=== PATIENT | male | born 1965 | race Caucasian/White ===

== ENCOUNTER 2022-03-08 10:46 | Emergency (ER) | payer BC, SELFPAY ==
[2022-03-08 10:51] VITALS: BP 145/85; PULSE 62; RESP 17; TEMP 36.6; O2SAT 99
--- NOTE | 2022-03-08 11:30 | DI.CT_ITS ---
Exam(s) CT HEAD WO EXAM: CT HEAD WO CLINICAL HISTORY: headache. TECHNIQUE: Imaging Protocol: Axial computed tomography images with coronal and sagittal reformatted images were created and reviewed COMPARISON: No exams were available for comparison FINDINGS: Ventricles and Extra axial spaces: Normal in size and morphology for the patient's age. Hemorrhage: None. Cerebral parenchyma: Normal. Midline shift: None. Brainstem/Cerebellum: Normal. Calvarium: Normal. Visualized Paranasal sinuses/Mastoids: There is mucosal thickening of a few ethmoid air cells and mil d mucosal thickening in the left sphenoid sinus. The remaining visualized paranasal sinuses and mast oid air cells are clear. Soft Tissues: Unremarkable. IMPRESSION: 1. No acute intracranial process. 2. Mild paranasal sinusitis. 3. Results of this exam have been verbally communicated with provider. RADIATION DOSE DELIVERED: 808.01mGy.cm Total DLP DATA REPOSITORY: All CT scans at this facility are submitted to the National Radiology Data Registry (NRDR) Dose Index Registry (DIR) with the [employer] ([employer]). RADIATION OPTIMIZATION: All CT scans at this facility use at least one of these dose optimization te chniques: automated exposure control; mA and/or kV adjustment per patient size (includes targeted exa ms where dose is matched to clinical indication); or iterative reconstruction.
[2022-03-08 11:56] LABS: Abs Immature Grans 0.04 10^3/uL (0.0-0.06); Absolute Basophil Count 0.02 10^3/uL (0.0-0.2); Absolute Eosinophil Count 0.02 10^3/uL (0.0-0.7); Absolute Monocyte Count 0.43 10^3/uL (0.1-0.8); Basophils % 0.2; Eosinophils % 0.2; HCT 43.7 % (40.0-50.0); HGB 15.6 g/dL (13.5-17.5); Immature Grans % 0.4; Lymphocytes % 9.9; MCH 31.5 pg (27.0-33.0); MCHC 35.7 % (32.0-36.0); MCV 88 fL (80-95); MPV 9.5 fL (8.0-11.0); Monocytes % 4.7; Neutrophils % 84.6; Platelet Count 208 10^3/uL (130-400); RBC 4.95 10^6/uL (4.36-5.78); RDW 13.1 % (11.8-14.1); RDW-SD 42.4 fL; WBC 9.11 10^3/uL (4.4-10.8)
[2022-03-08] MEDS: Normal Saline 1,000 ML 1000 ML IV (12:05)
[2022-03-08] MEDS: diphenhydrAMINE 50 MG/ML VIAL 25 MG IVP (12:08)
[2022-03-08] MEDS: Prochlorperazine 10 MG/2 ML VIAL IVP (12:08)
[2022-03-08 12:09] LABS: ALT 25 U/L (16-63); AST 16 U/L (15-37); Alkaline Phosphatase 52 U/L (46-116); Anion Gap 8.1 mmol/L (3-11); BUN 18 mg/dL (7-18); Bilirubin, Total 0.5 mg/dL (0.2-1.0); CO2 26.9 mmol/L (21.0-32.0); CREATININE 1.3 mg/dL (0.70-1.30); Calcium 9.6 mg/dL (8.5-10.1); Chloride 103 mmol/L (98-107); Estimated GFR 57.53 (mL/min/1.73m2); Glucose 106 mg/dL (74-106); Potassium 4.2 mmol/L (3.5-5.1); Sodium 138 mmol/L (136-145); Total Protein 7.5 g/dL (6.4-8.2)
[2022-03-08] MEDS: Ketorolac 30 MG/ML VIAL IVP (12:11)
--- NOTE | 2022-03-08 13:57 | ED.GENADUL_ITS ---
Discharge Plan Disposition Patient Disposition: HOME Condition: Improving Discharge Details Clinical Impression: Headache Primary Care Provider: Violeta,Local ED Provider: Tommy Messer Home Meds and New Rx's Prescriptions: No Action No Known Home Meds Discharge Instructions Instructions: General Headache (ED) Additional Instructions: If you have any new or significant worsening of symptoms it is recommended that you follow back up with the emergency department for reassessment and further imaging or treatment as needed. At this time your headache has improving and no focal neurological findings so no need for further work-up but again if any change in condition occurs it is recommended that you have further imaging and evaluation. Please stay well-hydrated and get plenty of rest and you may continue to take [id number] Excedrin, acetaminophen, or Motrin. Referrals: Primary Care Provider [Outside] - 1 week (For reassessment) Discharge Data Discharge Date/Time-TO BE ENTERED AT DEPARTURE: 03/08/22 14:35 Medical Decision Making Patient presenting to the emergency department chief complaint of headache. Patient does state that he has had significant amount of stress at work and does have history of migraines but today's is significantly worse than any headache he has had previously. Patient denies any focal neurological symptoms does state some nausea. Patient also does report that he had COVID within the past month and only had mild symptoms of for recovery. Physical exam reveals no focal gross neurological deficit. 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 We will plan on checking labs, giving migraine cocktail to include Toradol, Compazine, Benadryl, and IV fluids. Given worse headache will also perform CT imaging Review of labs is unremarkable CBC except for slight elevation of neutrophils and low lymphocytes, CMP unremarkable. CT was reviewed with radiologist and shows chronic sinus disease but no acute intracranial findings. Patient reassessed and did state significant improvement beyond meds making him slightly drowsy. Given that patient is improving, reassessment shows no acute neurological findings, I do feel that patient is safe for discharge also given that patient is going to be staying with family member who is in the medical field and who also can provide close monitoring. After discussion of diagnosis and plan of care patient and has no further needs, questions, or concerns and states clear understanding to return to the emergency department for any worsening symptoms. This documentation was generated using [employer] system, please disregard any oddities of phrase or misspellings. Imaging Data Radiologic Study: Imaging: CT Scan Radiologist's impression: FINDINGS: Ventricles and Extra axial spaces: Normal in size and morphology for the patient's age. Hemorrhage: None. Cerebral parenchyma: Normal. Midline shift: None. Brainstem/Cerebellum: Normal. Calvarium: Normal. Visualized Paranasal sinuses/Mastoids: There is mucosal thickening of a few ethmoid air cells and mild mucosal thickening in the left sphenoid sinus. The remaining visualized paranasal sinuses and mastoid air cells are clear. Soft Tissues: Unremarkable. IMPRESSION: 1. No acute intracranial process. 2. Mild paranasal sinusitis. 3. Results of this exam have been verbally communicated with provider. Lab Data Lab results reviewed: Yes I reviewed the patient's lab results. HPI General Mode of arrival: ambulatory . Date/Time Provider Initiated Documentation: 03/08/22 11:04 . Limitations to Documentation: no limitations . Information obtained by: patient and RN notes reviewed . History of Present Illness 56 year old M presents to the emergency department with the chief complaint of headache, described as severe, with intensity rated at 9. Quality is described as aching and sharp, and is localized to the head. Patient reports no radiation. Patient started experiencing this hour(s) (5) and it has been constant. No relieving factors improve symptom(s), No exacerbating factors reported . Patient notes denies chest pain, cough, rash, shortness of breath, syncope and weakness. Patient did receive the following treatments prior to arrival, none Related Data Home Medications Medication Instructions Recorded Confirmed Unknown [No Known Home Meds] 03/08/22 03/08/22 General Stated Complaint: Headache WOOD: 4 Review of Systems Constitutional Constitutional: Denies body ache(s), Denies chills, Denies fever(s) and Reports headache(s) Eyes Eyes: Denies change in vision ENT Ears, Nose, Mouth, and Throat: Denies dizziness and Reports headache(s) Cardiovascular Cardiovascular: Denies chest pain and Denies syncope Gastrointestinal Gastrointestinal: Reports nausea and Denies vomiting Neurologic Neurologic: Reports as per HPI, Denies dizziness, Denies syncope, Reports headache(s) and Denies sensory deficit PFSH All Active Problems (Updated 03/08/22 @ 14:29 by Tommy Messer NP) Headache (Acute) Social History Smoking/Tobacco Use Status: Never Smoking risk assessment performed?: Yes Alcohol Intake: current Alcohol Intake frequency: a few times a month Alcohol type: beer Drug use: Never Substance use type: does not use Do you feel safe at home: Yes Do you feel safe in your relationship?: Yes Exam Const General: cooperative and well groomed Orientation: alert, awake and oriented x3 HENMT Head: normal to inspection Ears: hearing grossly normal bilaterally and TM's normal bilaterally Mouth: oral mucosae normal and moist mucous membranes Throat: posterior oropharynx normal Eyes Visual Church: normal visual church by confrontation Alignment and Position: alignment normal Periorbital: periorbital findings normal Eyelids: eyelids normal Sclera: sclerae normal Pupils: other (Pupils are PERRL but left pupil is larger than the right @ baseline) EOM: EOM intact bilaterally Neck Neck: normal visual inspection, full ROM and no meningeal signs Resp Effort & Inspection: normal respiratory effort and able to speak in complete sentences Auscultation: clear to auscultation bilaterally Cardio Rate: regular rate Rhythm: regular rhythm Heart Sounds: S1 normal and S2 normal Neuro General: patient alert, patient awake, patient oriented x3, gait normal, tone normal, moves all extremities, CN's II-XI intact bilaterally and not confused Cognition: normal cognition Speech: speech normal Motor: muscle tone normal throughout, strength 5/5 throughout, no pronator drif t, no movement abnormalities noted and no fasciculations Sensory Exam: no sensory deficits noted Coordination: Does not sway with eyes open Course Vital Signs Vital signs: Vital Signs Temperature 36.6 C 03/08/22 10:51 Pulse 62 03/08/22 10:51 Respiratory Rate 17 03/08/22 10:51 Blood Pressure 145/85 H 03/08/22 10:51 Pulse Oximetry 99 03/08/22 10:51 Temperature 36.6 C 03/08/22 10:51 Temperature Source Temporal Artery Scan 03/08/22 10:51 Pulse 62 03/08/22 10:51 Respiratory Rate 17 03/08/22 10:51 Blood Pressure 145/85 H 03/08/22 10:51 Blood Pressure Position Sitting 03/08/22 10:51 Pulse Oximetry 99 03/08/22 10:51 Oxygen Delivery Method Room Air 03/08/22 10:51 Oxygen Flow Rate 0 03/08/22 10:51 Pain Level 10 03/08/22 10:51 Lab/Test Results Lab/Test Results: Laboratory Tests Range/Units 03/08/22 03/08/22 11:47 11:47 WBC (4.4-10.8) 10^3/uL 9.11 RBC (4.36-5.78) 10^6/uL 4.95 Hgb (13.5-17.5) g/dL 15.6 Hct (40.0-50.0) % 43.7 MCV (80-95) fL 88 MCH (27.0-33.0) pg 31.5 MCHC (32.0-36.0) % 35.7 RDW (11.8-14.1) % 13.1 Plt Count (130-400) 10^3/uL 208 MPV (8.0-11.0) fL 9.5 Immature Gran % 0.4 Neutrophils % 84.6 Lymphocytes % 9.9 Monocytes % 4.7 Eosinophils % 0.2 Basophils % 0.2 Nucleated RBC % (0.0-0.3) % 0.0 Absolute Neutrophils (1.2-6.7) 10^3/uL 7.70 H Absolute Lymphocytes (1.2-3.4) 10^3/uL 0.90 L Absolute Monocytes (0.1-0.8) 10^3/uL 0.43 Absolute Eosinophils (0.0-0.7) 10^3/uL 0.02 Absolute Basophils (0.0-0.2) 10^3/uL 0.02 Sodium (136-145) mmol/L 138 Potassium (3.5-5.1) mmol/L 4.2 Chloride (98-107) mmol/L 103 Carbon Dioxide (21.0-32.0) mmol/L 26.9 Anion Gap (3-11) mmol/L 8.1 BUN (7-18) mg/dL 18 Creatinine (0.70-1.30) mg/dL 1.3 Estimated GFR/1.73 m2 (mL/min/1.73m2) 57.53 Glucose (74-106) mg/dL 106 Calcium (8.5-10.1) mg/dL 9.6 Total Bilirubin (0.2-1.0) mg/dL 0.5 AST (15-37) U/L 16 ALT (16-63) U/L 25 Alkaline Phosphatase (46-116) U/L 52 Total Protein (6.4-8.2) g/dL 7.5 Albumin (3.4-5.0) g/dL 4.0
[2022-03-08 14:36] VITALS: BP 132/80; PULSE 71; RESP 18; TEMP 36.6; O2SAT 98
== END 2022-03-08 14:35 | disposition home or self-care (01) ==
PROVIDERS: Emergency Provider Nurse Practitioner Family
DX: R51.9 Headache, unspecified (principal); R11.0 Nausea; Z86.16 Personal history of COVID-19
CPT/HCPCS: 36415; 80053; 96361; 96374; 96375; 99284; 70450; 85025; 99282; J0780; J1200; J1885